=== PATIENT | male | born 1975 | race Caucasian/White ===

== ENCOUNTER 2019-08-11 11:34 | Day surgery (SDC) | payer OTHER ==
[~2019-08-11] VITALS: Ht 167.6 cm; Wt 86.2 kg
[2019-08-11 12:20] VITALS: BP 155/100
[2019-08-11 15:26] VITALS: BP 152/98
== END 2019-08-11 14:55 | disposition home or self-care (01) ==
LOC: OR 11:34 → DS 11:34 → OR 14:55
DX: M79.5 Residual foreign body in soft tissue (principal); F17.210 Nicotine dependence, cigarettes, uncomplicated
CPT/HCPCS: J2250; J3010; J3490; J7120